=== PATIENT | male | born 1990 | race Caucasian/White ===

== ENCOUNTER 2020-06-02 23:10 | Emergency (ER) | payer OTHER ==
[2020-06-02] MEDS ORDERED: BUFFERED LIDOCAINE 10 ML SYRINGE SUBQ STA (23:25)
--- NOTE | 2020-06-03 00:55 | ED Physician Documentation ---
PD HPI UPPER EXT INJURY - Stated complaint Stated Complaint: R INDEX FINGER LAC - Chief complaint Chief Complaint: Laceration - History obtained from History obtained from: Patient - History of Present Illness Location: Right, Finger (2nd digit), Other Type of injury: Laceration (Was doing the dishes and cut himself on a knife) Where injury occurred: Home Timing - onset: Other (This evening) Timing - details: Abrupt onset Pain level max: 4 Pain level now: 4 Improved by: Rest Worsened by: Moving, Palpating - Additonal information Additional information: tdap is up-to-date. No past medical history Review of Systems Skin: reports: Laceration (s) PD PAST MEDICAL HISTORY - Past Medical History Past Medical History: No - Past Surgical History Past Surgical History: Yes HEENT: Tonsil/Adenoidectomy - Present Medications Home Medications: Ambulatory Orders Medication Instructions Recorded Confirmed No Known Home Medications 06/02/20 06/02/20 - Allergies Allergies/Adverse Reactions: Allergies Allergy/AdvReac Type Severity Reaction Status Date / Time erythromycin base Allergy Rash Verified 06/02/20 23:16 [From Pediazole] sulfisoxazole Allergy Rash Verified 06/02/20 23:16 [From Pediazole] - Social History Does the pt smoke?: No Smoking Status: Never smoker Does the pt drink ETOH?: No Does the pt have substance abuse?: No - Immunizations Immunizations are current?: Yes - POLST Patient has POLST: No PD ED PE NORMAL - General General: Alert and oriented X 3 - HEENT HEENT: Atraumatic - Derm Derm: Other (LacerationOf right second finger volar surface distal aspect) - Extremities Extremities: Other (Neurovascular intact) - Neuro Neuro: Alert and oriented X 3 - Psych Psych: Normal mood, Normal affect Results - Vitals Vitals: Vital Signs - 24 hr 06/02/20 23:12 Temperature 36.6 C Heart Rate 70 Respiratory 18 Rate Blood Pressure 150/75 H O2 Saturation 95 Oxygen O2 Source Room air Procedures - Laceration (location) Finger right Distal Wound type: Linear Neurovascular status: Sensory intact, Vascular intact Tendon involvement: Tendon intact Anesthesia: Lidocaine 1% Wound Preparation: Betadine, Irrigated copiously NS Skin layer closure: Nylon, Size #-0 - enter number (4), Sutures - enter # (2) Other: Patient tolerated well, No complications, Neurovascular intact, Tetanus UTD Complexity: Simple PD MEDICAL DECISION MAKING - ED course ED course: 29yM previously healthy up-to-date on tetanus comes in with simple right index finger distal laceration 1 cm in lenggth. Laceration repair completed without complication. Patient will follow up in 10 days for suture removal. Departure - Departure Disposition: 01 Home, Self Care Clinical Impression: Laceration Condition: Good Instructions: ED Laceration Hand Comments: Follow-up in 10 days in our ED or in clinic for suture removal.
[2020-06-03 01:08] VITALS: BP 133/78
== END 2020-06-03 01:10 | disposition home or self-care (01) ==
LOC: ED 23:10
DX: S61.210A Laceration without foreign body of right index finger without damage to nail, initial encounter (principal); W26.0XXA Contact with knife, initial encounter; Y93.G1 Activity, food preparation and clean up; Y92.009 Unspecified place in unspecified non-institutional (private) residence as the place of occurrence of the external cause
CPT/HCPCS: 12001; 99281

== ENCOUNTER 2020-06-11 11:20 | Emergency (ER) | payer OTHER ==
[2020-06-11 11:27] VITALS: BP 124/68
--- NOTE | 2020-06-11 11:36 | ED Physician Documentation ---
PD HPI SKIN - Stated complaint Stated Complaint: STITCH REMOVAL - Chief complaint Chief Complaint: Wound - History obtained from History obtained from: Patient - Additional information Additional information: 29-year-old male here for suture removal of right index finger. Sliced his finger with a knife 9 days ago. 2 sutures were placed by previous colleague. Wound is healed well. No fevers erythema drainage your pain Review of Systems Constitutional: reports: Reviewed and negative Eyes: reports: Reviewed and negative Ears: reports: Reviewed and negative Throat: reports: Reviewed and negative Cardiac: reports: Reviewed and negative Skin: reports: Laceration (s) (right indec finger) PD PAST MEDICAL HISTORY - Past Surgical History Past Surgical History: Yes HEENT: Tonsil/Adenoidectomy - Present Medications Home Medications: Ambulatory Orders Medication Instructions Recorded Confirmed No Known Home Medications 06/02/20 06/02/20 - Allergies Allergies/Adverse Reactions: Allergies Allergy/AdvReac Type Severity Reaction Status Date / Time erythromycin base Allergy Rash Verified 06/11/20 11:27 [From Pediazole] sulfisoxazole Allergy Rash Verified 06/11/20 11:27 [From Pediazole] - Social History Does the pt smoke?: No Smoking Status: Never smoker Does the pt drink ETOH?: No Does the pt have substance abuse?: No - Immunizations Immunizations are current?: Yes - POLST Patient has POLST: No PD ED PE EXPANDED - Extremities Extremities: Right finger(s) (0.5 cm right index finger laceration fully healed. no swelling, erythema or drainage. 2 sutures removed intact by provider) Results - Vitals Vitals: Vital Signs - 24 hr 06/11/20 11:24 Temperature 36.8 C Heart Rate 56 L Respiratory 16 Rate Blood Pressure 124/68 O2 Saturation 100 Oxygen O2 Source Room air PD MEDICAL DECISION MAKING - ED course Complexity details: d/w patient ED course: fully healed 0.5 cm laceration right index finger with 2 sutures removed by this provider. no further care is necessary Departure - Departure Disposition: 01 Home, Self Care Clinical Impression: Encounter for removal of sutures Condition: Stable Record reviewed to determine appropriate education?: Yes Comments: Your wound is fully healed. No further care is necessary
== END 2020-06-11 11:39 | disposition home or self-care (01) ==
LOC: ED 11:20
DX: S61.210D Laceration without foreign body of right index finger without damage to nail, subsequent encounter (principal); W26.0XXD Contact with knife, subsequent encounter
CPT/HCPCS: 99281